=== PATIENT | male | born 1995 | race Caucasian/White ===

== ENCOUNTER 2018-01-16 22:53 | Emergency (ER) | payer OTHER ==
[2018-01-16 23:29] VITALS: BP 137/57
--- NOTE | 2018-01-17 00:33 | RADIOLOGY REPORT (SQ) ---
EXAM DESCRIPTION: XR SHOULDER 2 OR MORE VIEWS COMPLETED DATE/TME: 01/16/2018 00:00 CLINICAL HISTORY: 22 years, Male, injury/joint pain. COMPARISON: None. FINDINGS: 3 views of the right shoulder. No acute fracture or dislocation. Normal osseous mineralization. Acromioclavicular joint has normal appearance. No acute abnormalities of the right hemithorax. IMPRESSION: No acute fracture or dislocation. 2010 [employer]- All Rights Reserved
--- NOTE | 2018-01-17 02:08 | ER Document Report ---
ED Extremity Problem, Upper - General Chief Complaint: Shoulder Injury Stated Complaint: RIGHT SHOULER INJURY Time Seen by Provider: 01/17/18 01:33 Mode of Arrival: Ambulatory Information source: Patient Notes: Patient is an otherwise healthy 22-year-old male who presents with right shoulder pain after lifting weights tonight patient reports that he felt a pop. Patient denies any history of any trauma to the shoulder. Patient denies any other symptoms. TRAVEL OUTSIDE OF THE [place] IN LAST 30 DAYS: No - Related Data Allergies/Adverse Reactions: No Known Allergies Allergy (Unverified 01/16/18 22:56) Past Medical History - General Information source: Patient - Social History Smoking Status: Current Every Day Smoker Chew tobacco use (# tins/day): No Frequency of alcohol use: None Drug Abuse: None Family History: Reviewed & Not Pertinent Patient has suicidal ideation: No Patient has homicidal ideation: No - Medical History Medical History: Negative Renal/ Medical History: Denies: Hx Peritoneal Dialysis Surgical Hx: Negative - Immunizations Immunizations up to date: Yes Hx Diphtheria, Pertussis, Tetanus Vaccination: Yes Review of Systems - Review of Systems Constitutional: No symptoms reported EENT: No symptoms reported Cardiovascular: No symptoms reported Respiratory: No symptoms reported Gastrointestinal: No symptoms reported Genitourinary: No symptoms reported Male Genitourinary: No symptoms reported Musculoskeletal: See HPI Skin: No symptoms reported Hematologic/Lymphatic: No symptoms reported Neurological/Psychological: No symptoms reported Physical Exam - Vital signs Vitals: Temp Pulse Resp BP Pulse Ox 98.4 F 69 18 137/57 H 99 01/16/18 23:28 01/16/18 23:28 01/16/18 23:28 01/16/18 23:28 01/16/18 23:28 - Notes Notes: PHYSICAL EXAMINATION: GENERAL: Well-appearing, well-nourished and in no acute distress. HEAD: Atraumatic, normocephalic. NECK: Normal range of motion, supple without lymphadenopathy LUNGS: Breath sounds clear to auscultation bilaterally and equal. No wheezes rales or rhonchi. HEART: Regular rate and rhythm without murmurs ABDOMEN: Soft, nontender, nondistended abdomen. No guarding, no rebound. No masses appreciated. : deferred Musculoskeletal: Limited range of motion to right shoulder, normal sensation, radial and ulnar pulses are present, patient is able to move his right arm and shoulder with some limitation and tightness in the shoulder area. No pitting or edema. No cyanosis. NEUROLOGICAL: Cranial nerves grossly intact. Normal speech, normal gait. Normal sensory, motor exams SKIN: Warm, Dry, normal turgor, no rashes or lesions noted. Course - Re-evaluation Re-evalutation: Patient with right shoulder pain after hearing a pop while lifting weights. Patient's x-ray is negative for any dislocation or fracture. Patient's examination is normal other than some limitation to his range of motion. Patient will be provided with arm sling and given shoulder exercises as well as anti-inflammatories. [place] Patient encouraged to do the exercises as outlined so that he does not end up with a "frozen shoulder". Patient agrees with this plan. - Vital Signs Vital signs: Temp Pulse Resp BP Pulse Ox 98.4 F 69 18 137/57 H 99 01/16/18 23:28 01/16/18 23:28 01/16/18 23:28 01/16/18 23:28 01/16/18 23:28 Discharge - Discharge Clinical Impression: Shoulder injury Qualifiers: Encounter type: initial encounter Laterality: right Qualified Code(s): S49.91XA - Unspecified injury of right shoulder and upper arm, initial encounter Condition: Stable Disposition: HOME, SELF-CARE Additional Instructions: Shoulder Injury You have injured your shoulder. This usually results from stretching or tearing of the tendons during trauma. Time and protection are required in order to heal properly. Many injuries are quite disabling, and should be taken seriously. Initial treatment includes cold packs and a sling to rest the shoulder. The physician has assessed the seriousness of your injury, and has outlined a treatment plan. Understand that this treatment may change, depending on how you progress. If a re-examination was recommended, it is important that you follow up as instructed. Some shoulder injuries (such as partial tear of the rotator cuff) are only suspected after you've failed to improve. Call us if there's severe pain, numbness, or loss of function. Ice & Elevation Apply ice packs frequently against the painful area. Many different schedules are recommended, such as "20 minutes on, 20 minutes off" or "one hour ice, two hours rest." If you need to work, you may need to go longer between ice treatments. You should plan to have the area ice packed AT LEAST one- fourth of the time. The ice should be applied over the wrap, tape, or splint, or over a layer of cloth -- not directly against the skin. Some ice bags have a built-in cloth and can be put directly on the skin. Please use the sling for comfort and support. Perform range of motion exercises as discussed. Follow up with orthopedics if you fail to improve over the next 4-6 weeks, sooner if your condition worsens. Prescriptions: Ketorolac Tromethamine [Toradol 10 mg Tablet] 10 mg PO Q8HP PRN #30 tablet PRN Reason: Referrals: SHASHI HOPE MD [ACTIVE STAFF] - Follow up as needed
[2018-01-17] MEDS ORDERED: KETOROLAC TROMETHAMINE 60 MG/2 ML SDV IM ONE (02:09)
== END 2018-01-17 02:53 | disposition home or self-care (01) ==
LOC: ER 22:53
DX: S49.91XA Unspecified injury of right shoulder and upper arm, initial encounter (principal); M25.511 Pain in right shoulder; X50.0XXA Overexertion from strenuous movement or load, initial encounter; F17.200 Nicotine dependence, unspecified, uncomplicated
CPT/HCPCS: 99283; 96372; 73030; J1885